=== PATIENT | male | born 1955 | race Caucasian/White ===

== ENCOUNTER → 2025-01-17 | Outpatient (CLI) | payer MEDICARE ==
[2025-01-15 12:45] LABS: CREATININE 1.09 MG/DL (0.60-1.10); TOTAL CARBON DIOXIDE 27.2 MMOL/L (24-32); eGFR 67 ML/MIN
[~2025-01-17] MED LIST: GADOTERATE MEGLUMINE 7.5 MMOL/15 ML VIAL IV ONE
--- NOTE | 2025-01-17 13:06 | RADIOLOGY REPORT ---
PROCEDURE: MR MRI LUMBAR SPINE INDICATION: SPINAL STENOSIS, LUMBAR RE Exam Date: 01/17/2025 10:33 AM COMPARISON: None TECHNIQUE: MRI lumbar spine without and with intravenous contrast. FINDINGS: Multilevel disc degeneration. Alignment: No spondylolisthesis identified. Vertebrae: Mild chronic compression deformity of the L5 vertebral body with 25% h eight loss. Conus: Conus medullaris terminates at the T12-L1 level. Following levels detailed below: T12-L1: The disc configuration is normal. No spinal canal or neural foraminal stenosis. The facet tony ints are normal. L1-2: The disc configuration is normal. No spinal canal or neural foraminal steno sis. The facet joints are normal. L2-3: Disc desiccation. No spinal canal stenosis. Severe bilateral foraminal sten osis with potential bilateral exiting L2 nerve root compression. Facet arthrosis. L3-4: Disc desiccation and 5.5 mm disc bulge. No spinal canal stenosis. Severe bi lateral foraminal stenosis with potential bilateral exiting L3 nerve root compression. Facet arthrosi s. L4-5: Disc desiccation and 7.9 mm disc bulge. No spinal canal or neural foraminal stenosis. Facet arthrosis. L5-S1: The disc configuration is normal. No spinal canal stenosis. Severe right f oraminal stenosis with potential right exiting L5 nerve root compression. Facet arthrosis. IMPRESSION: Multilevel foraminal stenosis, most pronounced and severe at L5-S1 with potential right exiting L5 ne rve root compression.
== END | disposition home or self-care (01) ==
LOC: MRI 10:00
PROVIDERS: ATTEND Psychiatry & Neurology Neurology
DX: M47.817 Spondylosis without myelopathy or radiculopathy, lumbosacral region (principal); M51.369 Other intervertebral disc degeneration, lumbar region without mention of lumbar back pain or lower extremity pain; M43.8X7 Other specified deforming dorsopathies, lumbosacral region; M48.07 Spinal stenosis, lumbosacral region; R53.83 Other fatigue; R20.2 Paresthesia of skin; Z79.899 Other long term (current) drug therapy
CPT/HCPCS: 36415; 72158; 80053; A9575